=== PATIENT | male | born 1960 | race Hispanic/Latino ===

== ENCOUNTER 2024-07-16 17:36 | Emergency (ER) | payer MEDICARE ==
[~2024-07-16] VITALS: Ht 170.2 cm; Wt 74.8 kg
[~2024-07-16 17:36] MED LIST: AMOX1TAB16 PO; ASPI-1197 PO; FENO145T26 PO; GABA-529 PO; LISI1TAB51 PO; NIFE-39 PO
[2024-07-16] MEDS ORDERED: VANCOMYCIN PROTOCOL PER PHARMACY IV SCH (18:00)
[2024-07-16] MEDS ORDERED: VANCOMYCIN KIT 1 GM/250 ML IV.KIT IV ONE (18:00)
[2024-07-16 18:27] LABS: EOSINOPHILS # (AUTO) 0.39 K/uL (0.00-0.70); HEMATOCRIT 41.3 % (42-54); IMMATURE GRANULOCYTE ABSOLUTE 0.04 K/uL (0-1); LYMPHOCYTES # (AUTO) 2.6 K/uL (1.0-4.8); LYMPHOCYTES % (AUTO) 26.3 % (21.0-51.0); MEAN CORPUSCULAR HEMOGLOBIN 30.7 pg (27.0-33.0); MEAN CORPUSCULAR HGB CONC 32.4 g/dL (32.0-36.0); MEAN CORPUSCULAR VOLUME 94.5 fL (79-99); MONOCYTES # (AUTO) 0.8 K/uL (0.1-1.0); MONOCYTES % (AUTO) 8.2 % (3.0-13.0); NEUTROPHILS # (AUTO) 5.8 K/uL (1.8-7.7); NEUTROPHILS % (AUTO) 60.1 % (40.0-77.0); PLATELET COUNT (AUTO) 333 K/uL (130-400); RED BLOOD CELL COUNT(AUTO) 4.37 MIL/uL (4.50-6.20); RED CELL DISTRIBUTION WIDTH 13.9 % (11.0-15.5); WHITE BLOOD COUNT (AUTO) 9.7 K/uL (4.8-10.8)
[2024-07-16 18:37] LABS: INR 0.97 (0.85-1.15); PROTHROMBIN TIME 10.3 SEC (9.6-11.6)
[2024-07-16 18:39] LABS: PARTIAL THROMBOPLASTIN TIME 26.3 SEC (26.3-35.5)
--- NOTE | 2024-07-16 18:44 | ERN ---
General Stated Complaint: PROBLEMS WITH LEFT FOOT, BUTTOCKS PAIN Time Seen by MD: 17:37 Source: patient History of Present Illness Initial Comments IN HIS IS A 64-YEAR-OLD GENTLEMAN COMING IN TO BE EVALUATED FOR LEFT FOOT 4TH DIGIT NECROSIS. PER PATIENT HE WAS RECENTLY HOSPITALIZED AND DISCHARGED ON ORAL ANTIBIOTICS BUT STATES THAT THE TOE IS GETTING WORSE AND SO WITH THE PAIN. PATIENT IS HERE FOR FURTHER EVALUATION. Allergies: Coded Allergies: atorvastatin (Unverified Allergy, Unknown, RASH, 06/23/24) niacin (Verified Allergy, Unknown, 06/23/24) Home Meds Active Scripts Amoxicillin/Potassium Clav (Amox Tr-K Clv 875-125 mg Tab) 875 Mg-125 Mg Tablet, 1 TAB PO BID for 10 Days, #20 TAB 0 Refills Prov:APOLONIA ARAYA MD 06/27/24 Reported Medications Aspirin (Aspirin) 81 Mg Tab.chew, 1 TAB PO DAILY for 30 Days, #30 TAB 0 Refills 06/23/24 Nifedipine (Nifedipine ER) 60 Mg Tab.er.24, 1 TAB PO DAILY for 30 Days, #30 TAB 0 Refills 06/23/24 Lisinopril/Hydrochlorothiazide (Lisinopril-Hctz 20-12.5 mg Tab) 20 Mg-12.5 Mg Tablet, 1 TAB PO DAILY for 30 Days, #30 TAB 0 Refills 06/23/24 Fenofibrate Nanocrystallized (Fenofibrate) 145 Mg Tablet, 145 MG PO AD, TAB 06/23/24 Gabapentin (Gabapentin) 100 Mg Capsule, 300 MG PO BID, CAP 06/23/24 Past Medical History Past Medical History: Diabetes-Type II, High Cholesterol, Hypertension Past Surgical History: Other Surgical History Other: LT LEG STENT ROS Dictation CONSTITUTIONAL: NO CHILLS, NO FEVER, NO WEAKNESS, NO DIAPHORESIS, NO MALAISE. HEAD/FACE: NO SIGNS OF TRAUMA. EENT: NO EYE PAIN, NO BLURRED VISION, NO TEARING, NO DOUBLE VISION, NO EAR PAIN, NO EAR DISCHARGE, NO NOSE PAIN, NO NASAL CONGESTION, NO THROAT PAIN, NO THROAT SWELLING, NO MOUTH PAIN. RESPIRATORY: NO COUGH, NO ORTHOPNEA, NO SOB, NO STRIDOR, NO WHEEZING. CARDIOVASCULAR: NO CHEST PAIN, NO EDEMA, NO PALPITATIONS, NO SYNCOPE. GASTROINTESTINAL/ABDOMINAL: NO ABDOMINAL PAIN, NO CONSTIPATION, NO DIARRHEA, NO NAUSEA, NO VOMITING. GENITOURINARY: NO ABNORMAL DISCHARGE, NO DYSURIA, NO FREQUENT URINATION, NO HEMATURIA. NO COMPLAINTS OF PAIN IN THE GENITALS. MUSCULOSKELETAL: NO BACK PAIN, NO GOUT, NO JOINT PAIN, NO JOINT SWELLING, NO MUSCLE PAIN, NO MUSCLE STIFFNESS, NO NECK PAIN. INTEGUMENTARY: CHANGE IN COLOR, NO CHANGE IN HAIR/NAILS, NO DRYNESS, NO LESION, NO LUMPS, NO RASH. NEUROLOGICAL/PSYCH: NO ANXIETY, NOT DEPRESSED, NO EMOTIONAL PROBLEM, NO HEADACHE, NO NUMBNESS, NO PRE-EXISTING DEFICIT, NO HISTORY OF SEIZURES, NO TREMORS, NO WEAKNESS. HEMATOLOGIC/LYMPHATIC: NOT ANEMIC, NO HISTORY OF BLOOD CLOTS, NO APPARENT BLEEDING, NO BRUISING, GLANDS NOT SWOLLEN. ALL SYSTEMS NEGATIVE, EXCEPT NOTED. Physical Exam Physical Exam Dictation VITAL SIGNS: REVIEWED. GENERAL APPEARANCE: ALERT, ORIENTED X3, NO ACUTE DISTRESS, OBESE. HEAD AND FACE: NON-TRAUMATIC. EYES: PERRL, PINK CONJUNCTIVAS, EYELID NO TRAUMA, ANTERIOR CHAMBER CLEAR. EARS: PINNAS INTACT AND NO SIGNS OF TRAUMA OR ERYTHEMA. EAR CANALS CLEAR AND NO DISCHARGE. TMS NO ERYTHEMA. NOSE: NO DISCHARGE, NO BLEEDING. OROPHARYNX: MOUTH NORMAL, TEETH NO CARIES, TONGUE PINK. PHARYNX CLEAR, NO ERYTHEMA. TONSILS NO EXUDATES, NO ABSCESSES NOTED. MUCOUS MEMBRANE MOIST. NECK: SUPPLE, NON-TENDER, NO THYROMEGALY, NO MASSES, NO JVD, NO BRUITS. BREAST: DEFERRED. CHEST: NO TENDERNESS, NO CREPITUS, NO PARADOXICAL MOVEMENT, NO RETRACTIONS. LUNGS: CLEAR, WELL-VENTILATED, SYMMETRIC, NO RALES, NO WHEEZING, NO RHONCHI, NO STRIDOR, GOOD BREATH SOUNDS BILATERALLY. HEART: REGULAR RATE, REGULAR RHYTHM, NO MURMUR, NO GALLOPS. VASCULAR: NO PERIPHERAL EDEMA. ABDOMEN: SOFT, POSITIVE BOWEL SOUNDS, NONDISTENDED, NO GUARDING, NONTENDER, NO REBOUND, NO MASSES NO HEPATOMEGALY, NO SPLENOMEGALY, NO VALADEZ'S SIGN, NO HERNIAS. RECTAL: DEFERRED. GENITAL: DEFERRED. NEUROLOGICAL: NORMAL SPEECH, GROSS MOTOR FUNCTION INTACT, GROSS SENSORY FUNCTION INTACT. MUSCULOSKELETAL: NECK NONTENDER, FULL RANGE OF MOTION, BACK NONTENDER, FULL RANGE OF MOTION. EXTREMITIES: NONTENDER, FULL RANGE OF MOTION. SKIN: LEFT LEG 4TH TOE GANGRENE, DRY, NO TURGOR, NO RASH, NO LACERATIONS, NO ABRASIONS, NO CONTUSIONS. LYMPHATICS: DEFERRED. Results Laboratory and Microbiology Lab and Micro Result Laboratory Tests Test 07/16/24 18:09 07/16/24 19:30 White Blood Count 9.7 K/uL (4.8-10.8) Red Blood Count 4.37 MIL/uL (4.50-6.20) L Hemoglobin 13.4 g/dL (14.0-18.0) L Hematocrit 41.3 % (42-54) L Mean Corpuscular Volume 94.5 fL (79-99) Mean Corpuscular Hemoglobin 30.7 pg (27.0-33.0) Mean Corpuscular Hemoglobin Concent 32.4 g/dL (32.0-36.0) Red Cell Distribution Width 13.9 % (11.0-15.5) Platelet Count 333 K/uL (130-400) Mean Platelet Volume 11.1 fL (7.5-10.5) H Immature Granulocyte % (Auto) 0.4 % (0-1) Neutrophils (%) (Auto) 60.1 % (40.0-77.0) Lymphocytes (%) (Auto) 26.3 % (21.0-51.0) Monocytes (%) (Auto) 8.2 % (3.0-13.0) Eosinophils (%) (Auto) 4.0 % (0.0-8.0) Basophils (%) (Auto) 1.0 % (0.0-5.0) Neutrophils # (Auto) 5.8 K/uL (1.8-7.7) Lymphocytes # (Auto) 2.6 K/uL (1.0-4.8) Monocytes # (Auto) 0.8 K/uL (0.1-1.0) Eosinophils # (Auto) 0.39 K/uL (0.00-0.70) Basophils # (Auto) 0.10 K/uL (0.00-0.20) Absolute Immature Granulocyte (auto 0.04 K/uL (0-1) Nucleated Red Blood Cells 0.0 % (0.0-0.19) Prothrombin Time 10.3 SEC (9.6-11.6) Prothromb Time International Ratio 0.97 (0.85-1.15) Activated Partial Thromboplast Time 26.3 SEC (26.3-35.5) Sodium Level 135 mmol/L (136-145) L Potassium Level 4.7 mmol/L (3.5-5.1) Chloride Level 100 mmol/L (101-111) L Carbon Dioxide Level 31 mmol/L (21-32) Blood Urea Nitrogen 33 mg/dL (7-18) H Creatinine 2.9 mg/dL (0.5-1.3) H Glomerular Filtration Rate Calc 23 mL/min (>90) Random Glucose 135 mg/dL (70-105) H Lactic Acid Level 1.4 mmol/L (0.8-2.5) Total Calcium 8.6 mg/dL (8.5-10.1) Total Creatine Kinase 64 U/L (21-232) # Troponin I High Sensitivity 13 ng/L (4-75) Urine Color LIGHT-YELLOW (YELLOW) Urine Appearance CLEAR (CLEAR) Urine pH 5.5 (5.0-8.0) Urine Specific [place] 1.016 (1.001-1.031) Urine Protein 300 mg/dL (NEGATIVE) H Urine Glucose (UA) 50 mg/dL (NEGATIVE) H Urine Ketones NEGATIVE mg/dL (NEGATIVE) Urine Occult Blood SMALL (NEGATIVE) H Urine Nitrate NEGATIVE (NEGATIVE) Urine Bilirubin NEGATIVE mg/dL (NEGATIVE) Urine Urobilinogen 0.2 mg/dL (0.2-1.0) Urine Leukocyte Esterase NEGATIVE [place]/uL Urine RBC 2-5 /HPF (0-1) H Urine WBC 2-5 /HPF (0-1) H Urine Bacteria None /HPF (None Seen) Labs Reviewed?: Yes EKG/XRAY/US/CT/MRI X-RAY Comment No evidence of osteomyelitis. MDM MDM: DIFFERENTIAL DIAGNOSIS: TOE NECROSIS, GANGRENOUS TOE, SEPSIS, OSTEOMYELITIS, RATIONALE: TESTS CONSIDERED AND ORDERED SECONDARY TO SHARED DECISION MAKING INCLUDE: LABS, ECG AND RADIOLOGY PREVIOUS OUTSIDE RECORDS REVIEWED: OLD ER VISITS. RISK OF COMPLICATION AND/OR MORBIDITY OR MORTALITY OF PATIENT MANAGEMENT: NONE MEDICATIONS-PER MEDICATION RECONCILIATION NEED FOR HOSPITALIZATION: PATIENT DOES MEET CRITERIA FOR HOSPITALIZATION. NEED FOR EMERGENCY MAJOR/MINOR SURGERY: NO THERE ARE NO SOCIAL CONCERNS WITH THIS PATIENT. PRESCRIPTION DRUG MANAGEMENT PRESCRIPTIONS WILL INCLUDE SYMPTOMATIC CARE PATIENT'S PRIOR EXTERNAL MEDICAL RECORDS FROM OTHER ER VISITS WERE REVIEWED BY ME INDICATED. PRIOR TESTING AND RESULTS FROM PREVIOUS VISITS WERE REVIEWED. PRIOR TESTS WERE TAKEN INTO ACCOUNT WITH MEDICAL DECISION MAKING AND RESOURCE UTILIZATION, INDEPENDENT HISTORIAN/HISTORIANS WERE USED TO OBTAIN COMPLETE MEDICAL HISTORY. I INDEPENDENTLY INTERPRETED THE TEST THAT WERE PERFORMED, RESULTS WERE REVIEWED BY ME AND CONSIDERED FINDINGS ON RADIOLOGY IF ORDERED. MEDICAL MANAGEMENT AND EXAMINATION INTERPRETATION DISCUSSIONS WERE HAD BY ME WITH OTHER QUALIFIED HEALTHCARE PROFESSIONALS INDICATED FOR THE PATIENT'S CARE. ED Course Orders Procedure Category Date Status Time Cbc With Differential LAB 07/16/24 Complete 17:48 Prothrombin Time With LAB 07/16/24 Complete INR 17:48 Partial LAB 07/16/24 Complete Thromboplastin Time 17:48 Blood Cult MORENA 07/16/24 In Process 17:48 Urinalysis Profile LAB 07/16/24 Complete 17:48 Culture Urine MORENA 07/16/24 In Process 17:48 Creatine Kinase, Total LAB 07/16/24 Complete 17:48 Troponin I High LAB 07/16/24 Complete Sensitivity 17:48 Lactic Acid LAB 07/16/24 Complete 17:48 Basic Metabolic Panel LAB 07/16/24 Complete 17:48 Foot Comp 3+Vws Lt RAD 07/16/24 Taken 17:48 Vancomycin 1g/250ml PHA 07/16/24 Complete Kit (Vancomycin 1g/2 18:00 Vancomycin Protocol PHA 07/16/24 In Process (Vancomycin Protocol 18:00 Vancomycin 1.5 Gm/250 PHA 07/16/24 In Process Ml Bag (Vancomycin 19:00 Vancomycin 1g/250ml PHA 07/17/24 Complete Kit (Vancomycin 1g/2 19:00 Vancomycin 750mg PHA 07/17/24 In Process (Vancomycin 750mg) 19:00 Vancomycin Trough LAB 07/19/24 Verified 18:00 Current Medications Medications (Trade) Dose Ordered Sig/Karli Route PRN Reason Start Time Stop Time Status Last Admin Dose Admin Vancomycin HCl 250 ml @ 125 mls/hr ONCE ONCE IV 07/16/24 19:00 07/16/24 20:59 Vancomycin HCl 250 ml @ 125 mls/hr Q24H IV 07/17/24 19:00 07/16/24 19:01 DC Vancomycin HCl (Vancomycin 750mg) 750 mg Q24H IVPB 07/17/24 19:00 07/27/24 18:59 Vancomycin HCl (Vancomycin Protocol) 1 each AD IV 07/16/24 18:00 07/30/24 17:59 Vancomycin HCl (Vancomycin 1g/ 250ml Kit) 1 gm ONCE ONCE IV 07/16/24 18:00 07/16/24 18:33 DC Vital Signs Date Time Temp Pulse Resp B/P (MAP) Pulse Ox O2 Delivery O2 Flow Rate FiO2 07/16/24 18:47 98.1 83 16 171/74 100 0 I received this patient from Dr. Burleson. 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 The patient acknowledges that he has problems with circulation to his left leg he has had two stents placed and also a venous graft placed on his left leg and he states that all three of them are no longer functioning. The pain has increased in the last few days and that is why he is here he points to his toe his lateral foot his medial foot and his left calf. There is redness in his lower calf but I think that this is reactive hyperemia. There is no swelling there is no warmth. The patient is afebrile. The treatment for dry gangrene is to let it continue to auto necrose. There is no role for antibiotic ointments or salves, they can increase the risk of wet gangrene. I will give the patient a prescription for five days with low-dose oxycodone. He tells me he will see his jacquard fixer in five days. DX & DISP Disposition: Other(Comment) (PATIENT CARE TRANSITIONED TO DR. MERCEDES) Departure Impression: Primary Impression: Dry gangrene Additional Impression: Foot ulcer, left Condition: Stable Assign Patient to: Follow up with jacquard fixer and Family Care MD. Return if fevers, swelling, increased redness, purulent drainage. Scripts Oxycodone HCl (Oxycodone HCl) 10 Mg Tablet 1 TAB PO QIDP PRN for pain for 5 Days, #20 TAB 0 Refills Prov: ARMANDO LAKE MD 07/16/24 Referrals: CORBY RIOS MD (PCP) SEAN BURLESON MD Jul 16, 2024 18:44 ARMANDO LAKE MD Jul 16, 2024 20:15
[2024-07-16 18:53] LABS: CREATININE 2.9 mg/dL (0.5-1.3); POTASSIUM 4.7 mmol/L (3.5-5.1)
[2024-07-16 19:45] LABS: APPEARANCE,URINE CLEAR (CLEAR); BILIRUBIN,URINE NEGATIVE (NEGATIVE); COLOR,URINE LIGHT-YELLOW (YELLOW); GLUCOSE, URINE (UA) 50 mg/dL (NEGATIVE); KETONES,URINE NEGATIVE (NEGATIVE); LEUKOCYTE ESTERASE ,URINE NEGATIVE Leu/uL (NEGATIVE); NITRATE,URINE NEGATIVE (NEGATIVE); OCCULT BLOOD,URINE SMALL (NEGATIVE); PH,URINE 5.5 (5.0-8.0); PROTEIN,URINE 300 mg/dL (NEGATIVE); UROBILINOGEN,URINE 0.2 mg/dL (0.2-1.0)
[2024-07-16 19:46] LABS: ADD UA MICROSCOPIC YES
[2024-07-16 19:58] LABS: MUCUS,URINE RARE LPF (None Seen)
--- NOTE | 2024-07-16 20:02 | NUR ---
ASSUMED PT CARE AT THIS TIME
[2024-07-16] MEDS ORDERED: OXYC10TA48 PO (20:07)
--- NOTE | 2024-07-16 20:17 | HMCIMG ---
FOOT COMP 3+VWS LT HISTORY: Osteomyelitis COMPARISON: None TECHNIQUE: 3 images of left foot were obtained. FINDINGS: Amputation of left to be seen. Evaluation for osteomyelitis is limited with radiographs. There is no acute displaced fracture or dislocation. Degenerative changes are seen. IMPRESSION: 1. Findings as described above.
--- NOTE | 2024-07-16 20:20 | NUR ---
DR. VALLADARES AT BEDSIDE
[2024-07-16] MEDS: VANCOMYCIN 1.5 GM/250 ML BAG 250 ML IV ONE (20:25)
[2024-07-16] MEDS: OXYcodONE HCL 5 MG TAB PO ONE (20:47)
[2024-07-16 22:49] VITALS: BP 146/76; PULSE 74; RESP 16; TEMP 98.3; O2SAT 99
[2024-07-17] MEDS ORDERED: VANCOMYCIN 750MG VIAL IVPB SCH (19:00)
[2024-07-17] MEDS ORDERED: VANCOMYCIN 1G/250ML KIT 250 ML IV SCH (19:00)
== END 2024-07-16 22:51 | disposition home or self-care (01) ==
LOC: EDH 17:36
DX: E11.52 Type 2 diabetes mellitus with diabetic peripheral angiopathy with gangrene (principal); E11.621 Type 2 diabetes mellitus with foot ulcer; I96 Gangrene, not elsewhere classified; E78.00 Pure hypercholesterolemia, unspecified; I10 Essential (primary) hypertension; Z79.82 Long term (current) use of aspirin; Z79.899 Other long term (current) drug therapy
CPT/HCPCS: 99284; 96365; 96366; 82550; 84484; 80048; 85025; 85610; 85730; 87040 ×2; 87086 ×2; 87186; 83605; 81001; 36415; 73630; J3370